=== PATIENT | male | born 1980 | race Caucasian/White ===

== ENCOUNTER 2016-03-11 20:38 | Emergency (ER) | payer OTHER ==
[~2016-03-11] VITALS: Ht 177.8 cm; Wt 102.5 kg
[2016-03-11 21:00] VITALS: Ht 177.8 cm; Wt 102.5 kg
--- NOTE | 2016-03-11 21:14 | EN ---
Date/Time of Note Date/Time of Note DATE: 03/11/16 TIME: 21:14 ER Progress Note Rapid medical evaluation: 35-year-old male, questionable history of asthma comes in with cough, congestion for 3 days. He already took Zithromax 500 mg 3 days. Patient had a pulmonary examination does show some wheezing, he states that he usually gets a breathing treatment and feels better. Patient will wait for emergency department to for further evaluation and breathing treatment. SACHA MONTOYA PA-C Mar 11, 2016 21:14
[2016-03-11] MEDS ORDERED: ALBUTEROL 0.5% (NEB) 2.5 MG/0.5 ML AMP NEB STA (22:01)
[2016-03-11] MEDS ORDERED: predniSONE 20 MG TAB PO STA (22:01)
[2016-03-11] MEDS ORDERED: IPRATROPIUM (NEB) 0.5 MG/2.5 ML AMP NEB STA (22:01)
--- NOTE | 2016-03-11 22:20 | ERD ---
ER Documentation Chief Complaint Date/Time DATE: 03/11/16 TIME: 22:19 Chief Complaint flu like symtoms- body aches, fever, cough runny nose, headaches HPI 35-year-old male possible history of asthma comes in with cough, congestion, runny nose and headache for 3 days. Patient also describes back pain when he coughs. He took Zithromax 500 mg 3 times over the last 3 days, this is a prescription medicine that he just had at home. No shortness of breath, he has noted wheezing however. No travel. ROS All systems reviewed and are negative except as per history of present illness. Medications Home Meds Active Scripts Naproxen* (Naprosyn*) 500 Mg Tablet, 500 MG PO BID Y for PAIN AND/OR INFLAMMATION, #30 TAB Prov:SACHA MONTOYA PA-C 03/11/16 Albuterol Sulfate* (Proair HFA*) 8.5 Gm Hfa.aer.ad, 2 PUFF INH Q4, #1 INHALER Prov:SACHA MONTOYA PA-C 03/11/16 Prednisone* (Prednisone*) 20 Mg Tab, 40 MG PO DAILY for 4 Days, TAB Prov:SACHA MONTOYA PA-C 03/11/16 Allergies Allergies: Coded Allergies: No Known Allergy (Unverified , 03/11/16) PMhx/Soc Medical and Surgical Hx: pt denies Medical Hx, pt denies Surgical Hx Hx Alcohol Use: No Hx Substance Use: No Hx Tobacco Use: No Smoking Status: Never smoker Physical Exam Vitals Vital Signs Date Time Temp Pulse Resp B/P Pulse Ox O2 Delivery O2 Flow Rate FiO2 03/11/16 22:50 98.2 104 24 140/93 98 Room Air 03/11/16 21:00 98.2 98 20 131/84 100 Physical Exam General: Well-developed, well-nourished. The patient appears in no acute distress. HEENT: Head is normocephalic, atraumatic. No scleral icterus. Pupils are equal , round, and reactive. Oral mucous membranes are moist. No pharyngeal erythema. Neck: Supple. Nontender. Lungs: Wheezing bilaterally, no rales, rhonchi no tachypnea Heart: Regular rate and rhythm. S1 and S2 are normal. No murmurs, gallops, or rubs. Abdomen: Soft, nontender, nondistended. Bowel sounds are normoactive. Extremities: No clubbing or cyanosis. Normal pulses. Moving extremities x 4. No weakness. Neurologic: Alert and oriented 3. No focal deficits. Skin: Normal turgor. No rash or lesions. Results 24 hrs Current Medications Medications (Trade) Dose Ordered Sig/Medardo Route PRN Reason Start Time Stop Time Status Last Admin Dose Admin Albuterol (Proventil 0.5% (Neb)) 5 mg ONCE STAT NEB 03/11/16 22:01 03/11/16 22:03 DC 03/11/16 22:21 Ipratropium [place] (Atrovent 0.02% (Neb)) 0.5 mg ONCE STAT NEB 03/11/16 22:01 03/11/16 22:03 DC 03/11/16 22:21 Prednisone (Prednisone) 60 mg ONCE STAT PO 03/11/16 22:01 03/11/16 22:03 DC 03/11/16 22:10 Chest X-ray 1V Interpreted by me: Soft Tissue: No acute abnormalities Bones: No acute abnormalities Mediastinum/Cardiac Silhouette/Lungs: No acute abnormalities Procedures/MDM ED course: Patient was given prednisone 60 mg p.o., breathing treatment with albuterol 5 mg , Atrovent 0.5 mg neb was administered. MDM: The patient is a 35-year-old male who comes in with an acute upper respiratory infection, presumed viral, with wheezing. Patient had wheezing bilaterally on examination was given a breathing treatment with albuterol and Atrovent as well as prednisone, we auscultation of the lungs showed scant wheezing and patient reports to be symptomatically better. Chest x-ray results were discussed with him, I did explain to the patient that this is likely a viral upper respiratory infection and that he may discontinue the antibiotics at home. No evidence of pneumonia. The patient has a differential diagnosis of a viral upper respiratory infection, bacterial upper respiratory infection, bronchitis, pneumonia, pharyngitis, laryngitis, epiglottitis, croup, pneumonia. Patient has a normal pulmonary examination, clear breath sounds, normal pulse oximetry, with no corrective measures needed at this time. Fluids, rest, antipyretics were encouraged. Departure Diagnosis: Primary Impression: Upper respiratory infection Condition: SACHA Moon PA-C Mar 11, 2016 22:20
--- NOTE | 2016-03-11 22:32 | RADRPT ---
PROCEDURE: XR Chest AP portable CLINICAL INDICATION: Cough TECHNIQUE: An AP portable radiograph of the chest was submitted. COMPARISON: None. FINDINGS: Support Hardware: None Cardiovascular: The cardiovascular silhouette appears unremarkable. Lung Eisenberg: The lung eisenberg appear clear with no nodule, alveolar infiltrate, for a interstitial pr ominence evident. Pleural Spaces: No pneumothorax or pleural effusion is identified. Osseous Structures: The osseous structures appear intact. Soft Tissues: The soft tissues appear unremarkable. IMPRESSION: Unremarkable portable chest. Physician Jacob Date Time Electronically viewed and signed by Aida Bob Physician on 03/11/2016 22:32 RH/
[2016-03-11] MEDS ORDERED: ALBU8.5H3 INH (22:38)
[2016-03-11] MEDS ORDERED: PRED20TA PO (22:38)
[2016-03-11] MEDS ORDERED: NAPR-260 PO (22:38)
[2016-03-11 22:50] VITALS: BP 140/93; PULSE 104; RESP 24; TEMP 98.2
== END 2016-03-11 22:52 | disposition home or self-care (01) ==
LOC: FTE 20:38
DX: J06.9 Acute upper respiratory infection, unspecified (principal)
CPT/HCPCS: 71010; 94664; J7512